=== PATIENT | male | born 1970 | race Caucasian/White ===

== ENCOUNTER 2017-02-13 08:05 | Outpatient (CLI) | payer OTHER ==
[~2017-02-13] VITALS: Ht 175.3 cm; Wt 85.7 kg
[2017-02-13] VITALS (7 sets, daily range): BP systolic 100–132; BP diastolic 46–88; PULSE 52–57; TEMP 97.6
[~2017-02-13 08:05] MED LIST: LEXAPRO 5MG5 MG PO; NEURONTIN300 MG/CAP PO; NEXIUM 40MG40 MG PO; ZOCOR 40MG40 MG PO
[2017-02-23 09:10] LABS: ALBUMIN CSF 31.7 mg/dL (<=27.0); CSF IGG/ALBUMIN 0.14 (<=0.21); CSF,IGG 4.3 mg/dL (<=8.1)
[2017-02-23 09:21] LABS: CSF SYNTHESIS RATE 0.51 mg/24 h (<=12); CSF-IGG INDEX 0.52 (<=0.85); IGG/ALBUMIN SERUM 0.27 (<=0.40)
== END 2017-02-13 11:05 | disposition home or self-care (01) ==
LOC: COL.RAD 08:05
PROVIDERS: Psychiatry & Neurology Neurology
DX: G37.9 Demyelinating disease of central nervous system, unspecified (principal)